=== PATIENT | female | born 1985 | race Caucasian/White ===

== ENCOUNTER → 2018-10-19 13:55 | Outpatient (CLI) | payer OTHER, SELFPAY ==
[2018-10-24 11:56] LABS: HPV Reflexed? NOT INDICATED
== END ==
PROVIDERS: Visit Provider Obstetrics & Gynecology
DX: Z12.4 Encounter for screening for malignant neoplasm of cervix (principal)
CPT/HCPCS: 88175; G0145

== ENCOUNTER → 2020-07-29 12:33 | Outpatient (CLI) | payer OTHER, SELFPAY ==
[2020-07-29 14:23] LABS: hCG Titer Quant., Serum 46800 mIU/mL (1-3)
== END ==
PROVIDERS: PCP Family Medicine; Referring Provider Obstetrics & Gynecology; Visit Provider Obstetrics & Gynecology
DX: O20.0 Threatened abortion (principal); Z3A.00 Weeks of gestation of pregnancy not specified
CPT/HCPCS: 36415; 84702; 86850; 86900; 86901

== ENCOUNTER → 2020-07-30 14:31 | Outpatient (CLI) | payer OTHER, SELFPAY ==
--- NOTE | 2020-07-30 14:33 | US_ITS ---
STUDY: FIRST TRIMESTER OBSTETRICAL ULTRASOUND REASON FOR EXAM: Female, 35 years old DATING/VIABILITY LMP: 06/16/2020. TECHNIQUE: Transvaginal TECHNICAL QUALITY: Adequate. PRIOR ULTRASOUND: None. FINDINGS: There is visualization of a single gestational sac in a normal intrauterine position. The mean sac diameter (MSD) measures 2.2 cm, indicating an estimated gestational age (EGA) of 7 weeks, 2 days. The gestational sac shape is within normal limits. There is a visualized yolk sac. The yolk sac measures 3.4 mm. The placenta is non-visualized. There is visualization of a live embryo. The crown-rump length (CRL) measures 5.3 mm, indicating an estimated gestational age (EGA) of 6 weeks, 3 days. There is demonstrated cardiac activity with a heart rate of 136 bpm. The estimated gestation age (EGA) by LMP is 6 weeks, 2 days. The estimated date of delivery (KAE) by LMP is 03/23/2021. The estimated gestation age (EGA) by US is 6 weeks, 6 days. The estimated date of delivery (KAE) by US is 03/19/2021. The uterus measures 8.7 cm x 5.8 cm x 4.4 cm. There is no demonstrated uterine fibroid. The cervix is closed. Multiple small nabothian cysts are seen. The right ovary measures 3.2 cm x 1.9 cm x 2.5 cm. There is no right ovarian cyst. There is no visualized right adnexal mass or complex lesion. The left ovary measures 2.8 cm x 2 cm x 1.8 cm. There is no left ovarian cyst. There is no visualized left adnexal mass or complex lesion. There is minimal fluid in the cul de sac. US/Init OB < 14Wks US IMPRESSION: Single live intrauterine gestation with a mean gestational age of 6 weeks and 6 days. Electronically Signed: Asher Kebede, at 15:34 EST , Service support ,
== END ==
PROVIDERS: PCP Family Medicine; Visit Provider Obstetrics & Gynecology
DX: O46.91 Antepartum hemorrhage, unspecified, first trimester (principal); Z3A.01 Less than 8 weeks gestation of pregnancy
CPT/HCPCS: 76801

== ENCOUNTER → 2020-08-26 10:06 | Outpatient (CLI) | payer OTHER, SELFPAY ==
[2020-08-26 09:26] VITALS: BMI 23.2
[2020-08-26 10:23] LABS: Absolute Lymphocyte Count 1.95 X10^3/uL (0.83-4.51); Absolute Neutrophil Count 5.8 X10^3/uL (2.0-7.7); Basophil# 0.03 X10^3/uL; Basophil% 0.4 % (0-1); Eosinophil# 0.06 X10^3/uL; Eosinophils% 0.7 % (0-5); Hematocrit 35.7 % (37-47); Hemoglobin 11.9 g/dL (12.0-15.0); Lymphocyte # 1.95 X10^3/ul (4.0); Mean Corp Hgb Conc 33.3 g/dL (32-36); Mean Corpuscular Hgb 30.7 pg (27.0-32.0); Mean Platelet Vol. 8.9 fl (6.2-12.0); Monocyte# 0.58 X10^3/uL; Monocyte% 6.8 % (0-10); NRBC Flagged by Analyzer 0 % (0-5); Neutrophil # 5.84 X10^3/uL (2.7-7.7); Neutrophil % 68.9 % (47-70); Platelet Count 269 K/mm3 (150-450); RBC Distribution Width CV 12.6 % (11.6-14.6); RBC Distribution Width SD 41.9 fl (35.1-43.9); Red Blood Count 3.88 M/mm3 (4.2-5.4); White Blood Count 8.5 K/mm3 (4.4-11.0)
[2020-08-26 17:04] LABS: Amphetamine Urine VISTA NEGATIVE (<1000 ng/mL); Barbiturate Urine VISTA NEGATIVE (< 200 ng/mL); Benzodiazepine Urine VISTA NEGATIVE (< 200 ng/mL); Cocaine Urine VISTA NEGATIVE (< 300 ng/mL); Ecstacy Urine VISTA NEGATIVE (< 500 ng/mL); Methadone Urine VISTA NEGATIVE (< 300 ng/mL); PCP Urine VISTA NEGATIVE (< 25 ng/mL); THC Urine VISTA NEGATIVE (< 50 ng/mL); Vista UDS pH Range 6
[2020-08-28 15:03] LABS: HIV - WCH Non-Reactive (Nonreactive); Hepatitis B Surface Antigen Non-Reactive (Nonreactive); Hepatitis C Antibody Non-Reactive (Nonreactive); Rubella IgG Reactive (Nonreactive)
[2020-08-29 03:03] LABS: Rapid Plasmin Reagin (RPR) NONREACTIVE (NONREACTIVE)
[2020-08-29 06:07] LABS: Chlamydia By Nucleic Acid AMP Negative (Negative)
[2020-08-29 13:45] LABS: HPV APTIMA, High Risk Negative (Negative)
[2020-08-29 13:48] LABS: Gonococcus By Nucleic Acid AMP Negative (Negative)
== END ==
PROVIDERS: PCP Family Medicine; Referring Provider Obstetrics & Gynecology; Visit Provider Obstetrics & Gynecology
DX: Z34.90 Encounter for supervision of normal pregnancy, unspecified, unspecified trimester (principal); Z12.4 Encounter for screening for malignant neoplasm of cervix; Z11.3 Encounter for screening for infections with a predominantly sexual mode of transmission
CPT/HCPCS: 36415; 80307; 85025; 86592; 86703; 86762; 86803; 86850; 86900; 86901; 87086; 87088; 87340; 87491; 87591; 87624; 88175; G0145

== ENCOUNTER → 2020-11-04 15:51 | Outpatient (CLI) | payer OTHER, SELFPAY ==
[2020-09-26 15:03] VITALS: BMI 23.6
[2020-10-25 15:19] VITALS: BMI 24.7
--- NOTE | 2020-11-04 15:53 | US_ITS ---
STUDY: SECOND AND THIRD TRIMESTER OBSTETRICAL ULTRASOUND REASON FOR EXAM: Female, 35 years old anatomy LMP: 06/16/2020. TECHNIQUE: Transabdominal and Transvaginal TECHNICAL QUALITY: Adequate. PRIOR ULTRASOUND: Comparison is made with prior study dated 07/30/2020. FINDINGS: There is a single intrauterine fetus. The fetus is in a variable presentation. There is demonstrated cardiac activity with a heart rate of 144 bpm. There is a normal amniotic fluid volume. The largest amniotic fluid pocket measures 6.01 cm. The amniotic fluid index (BHUPINDER) is within normal limits. The placenta is posterior in location and is not low lying. There are Grade 0 placental changes. The cervix measures 4.1 cm in length. Multiple small nabothian cysts are seen. The adnexal regions are not visualized. BIOMETRY: BPD: 4.7 cm: 20 weeks, 1 days HC: 17.57 cm: 20 weeks, 0 days AC: 15.69 cm: 20 weeks, 5 days FL: 3.1 cm: 19 weeks, 4 days CI: 76.3% FL/BPD: 65.9% FL/HC: FL/AC: 19.8% HC/AC: 1.1 age by current US: 20 weeks, 0 days. KAE by current US: 03/24/2021. Estimated weight: 346 grams, +/- 52 grams, 54 %. age by prior US: 20 weeks, 5 days. KAE by prior US: 03/19/2021. Age by LMP: 20 weeks, 1 days. KAE by LMP: 03/23/2021. ANATOMY: Gender: Female Cranium: Normal lateral ventricles. Normal choroid plexus. Normal cerebellum. Normal cisterna magna. Normal face, nose and lips. Chest: Normal 4-chamber heart. Abdomen/Pelvis: Normal diaphragm. Normal stomach. Normal abdominal wall. Normal cord insertion. Normal 3 vessel cord. Normal kidneys. Normal bladder. Spine: Normal cervical spine. Normal thoracic spine. Normal lumbar spine. Normal sacrum. Extremities: Normal bilateral upper extremities. Normal bilateral lower extremities. US/OB Anatomy Scan IMPRESSION: Single live intrauterine gestation with a mean gestational age of 20 weeks and 1 day. Electronically Signed: Asher Kebede MD at 8:40 EDT , Service support ,
== END ==
PROVIDERS: PCP Family Medicine; Referring Provider Obstetrics & Gynecology; Visit Provider Obstetrics & Gynecology
DX: Z34.00 Encounter for supervision of normal first pregnancy, unspecified trimester (principal)
CPT/HCPCS: 76805; 76817

== ENCOUNTER → 2021-01-02 14:16 | Outpatient (CLI) | payer OTHER, SELFPAY ==
[2020-12-19 15:36] VITALS: BMI 24.7
[2021-01-02 15:10] LABS: Basophil# 0.03 X10^3/uL; Basophil% 0.2 % (0-1); Eosinophil# 0.08 X10^3/uL; Eosinophils% 0.7 % (0-5); Hematocrit 32.5 % (37-47); Hemoglobin 10.7 g/dL (12.0-15.0); Lymphocyte % 17.9 % (19-41); Mean Corp Hgb Conc 32.9 g/dL (32-36); Mean Corpuscular Hgb 30.2 pg (27.0-32.0); Mean Corpuscular Volume 91.8 fL (81-99); Mean Platelet Vol. 9.1 fl (6.2-12.0); Monocyte# 0.91 X10^3/uL; Monocyte% 7.4 % (0-10); NRBC Flagged by Analyzer 0 % (0-5); Neutrophil # 8.98 X10^3/uL (2.7-7.7); Neutrophil % 73.1 % (47-70); Platelet Count 238 K/mm3 (150-450); RBC Distribution Width CV 12.4 % (11.6-14.6); RBC Distribution Width SD 41.6 fl (35.1-43.9); Red Blood Count 3.54 M/mm3 (4.2-5.4); White Blood Count 12.3 K/mm3 (4.4-11.0)
[2021-01-02 15:27] LABS: Glucose Challenge Gest 1H 50g 114 mg/dL (70-140)
== END ==
PROVIDERS: PCP Family Medicine; Referring Provider Obstetrics & Gynecology; Visit Provider Obstetrics & Gynecology
DX: Z34.02 Encounter for supervision of normal first pregnancy, second trimester (principal); Z13.1 Encounter for screening for diabetes mellitus
CPT/HCPCS: 36415; 82950; 85025

== ENCOUNTER → 2021-01-31 15:49 | Outpatient (CLI) | payer OTHER, SELFPAY ==
[2021-01-31 15:23] VITALS: BMI 27.4
[2021-01-31 17:08] LABS: Absolute Lymphocyte Count 2.68 X10^3/uL (0.83-4.51); Absolute Neutrophil Count 10.7 X10^3/uL (2.0-7.7); Basophil# 0.03 X10^3/uL; Basophil% 0.2 % (0-1); Eosinophil# 0.11 X10^3/uL; Eosinophils% 0.7 % (0-5); Hematocrit 35.4 % (37-47); Hemoglobin 11.5 g/dL (12.0-15.0); Lymphocyte # 2.68 X10^3/ul (0.83-4.51); Lymphocyte % 18.1 % (19-41); Mean Corp Hgb Conc 32.5 g/dL (32-36); Mean Corpuscular Hgb 30.6 pg (27.0-32.0); Mean Corpuscular Volume 94.1 fL (81-99); Mean Platelet Vol. 9.1 fl (6.2-12.0); Monocyte# 1.18 X10^3/uL; NRBC Flagged by Analyzer 0 % (0-5); Neutrophil # 10.71 X10^3/uL (2.7-7.7); Neutrophil % 72.2 % (47-70); Platelet Count 261 K/mm3 (150-450); RBC Distribution Width CV 13.2 % (11.6-14.6); RBC Distribution Width SD 45.8 fl (35.1-43.9); Red Blood Count 3.76 M/mm3 (4.2-5.4); White Blood Count 14.8 K/mm3 (4.4-11.0)
== END ==
PROVIDERS: PCP Family Medicine; Referring Provider Obstetrics & Gynecology; Visit Provider Obstetrics & Gynecology
DX: D50.9 Iron deficiency anemia, unspecified (principal)
CPT/HCPCS: 36415; 85025

== ENCOUNTER → 2021-02-14 | Outpatient (CLI) | payer OTHER, SELFPAY ==
[2021-02-14 15:24] VITALS: BMI 27.4
== END | disposition home or self-care (01) ==
LOC: LABSPEC 17:34
PROVIDERS: PCP Family Medicine; Visit Provider Obstetrics & Gynecology
DX: O12.10 Gestational proteinuria, unspecified trimester (principal); Z3A.00 Weeks of gestation of pregnancy not specified
CPT/HCPCS: 87086; 87088

== ENCOUNTER → 2021-02-28 | Outpatient (CLI) | payer OTHER, SELFPAY ==
[2021-02-28 15:16] VITALS: BMI 27.4
== END | disposition home or self-care (01) ==
LOC: LABSPEC 16:45
PROVIDERS: PCP Family Medicine; Visit Provider Obstetrics & Gynecology
DX: Z34.02 Encounter for supervision of normal first pregnancy, second trimester (principal)
CPT/HCPCS: 87081

== ENCOUNTER 2021-03-30 07:00 | Inpatient (IN) | payer OTHER, SELFPAY ==
[2021-03-30] VITALS (46 sets, daily range): BP systolic 82–131; BP diastolic 42–87; PULSE 70–247; TEMP 36.7–38.4; O2SAT 89–99; BMI 28.0
[2021-03-30 07:50] LABS: Absolute Lymphocyte Count 2.33 X10^3/uL (0.83-4.51); Absolute Neutrophil Count 6.9 X10^3/uL (2.0-7.7); Basophil# 0.03 X10^3/uL; Basophil% 0.3 % (0-1); Eosinophil# 0.12 X10^3/uL; Eosinophils% 1.2 % (0-5); Hematocrit 39.3 % (37-47); Hemoglobin 13.2 g/dL (12.0-15.0); Lymphocyte # 2.33 X10^3/ul (0.83-4.51); Lymphocyte % 22.7 % (19-41); Mean Corp Hgb Conc 33.6 g/dL (32-36); Mean Corpuscular Hgb 30.4 pg (27.0-32.0); Mean Corpuscular Volume 90.6 fL (81-99); Mean Platelet Vol. 9.3 fl (6.2-12.0); Monocyte# 0.81 X10^3/uL; Monocyte% 7.9 % (0-10); NRBC Flagged by Analyzer 0 % (0-5); Neutrophil # 6.89 X10^3/uL (2.7-7.7); Neutrophil % 67.2 % (47-70); Platelet Count 245 K/mm3 (150-450); RBC Distribution Width CV 13.5 % (11.6-14.6); RBC Distribution Width SD 45.2 fl (35.1-43.9); Red Blood Count 4.34 M/mm3 (4.2-5.4); White Blood Count 10.3 K/mm3 (4.4-11.0)
[2021-03-30] MEDS: Oxytocin 30 units/NS 500 ml 30 UNITS/500 ML IV.SOLN IV (08:01)
[2021-03-30] MEDS: Lactated Ringers 1,000 ML 50 ML IV (08:01)
--- NOTE | 2021-03-30 10:09 | HP.PCM.OB_ITS ---
HPI - General General Date of Admission: 03/30/21 HPI Narrative SREEDHAR DE LA CRUZ, is a 35 F at 41/0 who presents for induction of labor for late term Maternal Data Information KAE Calculator Estimated Delivery Date Method Current WG Current Estimate 03/23/21 LMP (Certain) 41w 0d Other Estimates 03/17/21 Ultrasound #1 41w 6d PFSH PFSH Medical History History of tetanus, diphtheria, and acellular pertussis booster vaccination ( Tdap) Proctitis Home Medications mesalamine 1,000 mg rectal suppository 1 g RC PRN PRN 08/01/20 [History Last Taken Unknown] multivitamin no.47-iron fum 27 mg-folate no.1 1 mg-dha 300 mg capsule 1 cap PO DAILY 08/01/20 [History Last Taken 03/30/21 06:00] ferrous sulfate [iron] 325 mg PO DAILY 03/30/21 [History Last Taken 03/29/21 20:00] Allergy/AdvReac Type Severity Reaction Status Date / Time amoxicillin [From Augmentin] AdvReac Intermediate Hives Verified 03/27/21 13:25 clavulanic acid AdvReac Intermediate Hives Verified 03/27/21 13:25 [From Augmentin] Family History Mother Lung cancer Father Prostate CA Grandfather Cancer Surgical History History of tonsillectomy Social History adopted: No household members: family housing: house current occupational status: employed current occupation: [employer] pets and animals: No Smoking Status: Never smoker second hand exposure: No alcohol intake: current alcohol intake frequency: holidays/special occasions only details: not while substance use type: does not use seatbelt use: always do you feel safe at home: Yes additional social history: - [place] Senior Benefits [employer] History 1 Elective abortions Hx Para 0 Spontaneous abortions Hx # Term Pregnancies Ectopic pregnancies Hx # Pregnancies Multiple births # of living children Visit Details Expected Delivery Route/Plan Labor Preferences- CB/BF classes: desires labor support person: [place] labor intervention preferences: [] pain management options preferred: epidural if needed cut cord/dad catch: cord : yes PP control planned: NFP discussed possible routes of delivery and associated risks: [] special requests: [] Plans covid status: dontrell flu vaccine: declines tdap vaccine: declines but considering rhogam: na LARC form signed: yes movement and labor precautions reviewed. Problem list reviewed and updated with the most current plan of care details and appropriate orders placed. Relevant counseling for the gestational age provided. Continue routine care and follow up unless otherwise noted in visit notes/problem list details OB Flowsheet Initial Weight: 144 lb Date -?-?-?-?-?-?-?-?-?-?-?-?- EGA Weight BP Urine Prot -?-?-?-?-?-?-?-?-?-?-?-?- Glucose FHR FuHt Pres Dilation -?-?-?-?-?-?-?-?-?-?-?-?- Effaced St Visit Note 08/26/20 -?-?-?-?-?-?-?-?-?-?-?-?- 10w 1d 144 lb (+0 oz) 110/72 -?-?-?-?-?-?-?-?-?-?-?-?- -?-?-?-?-?-?-?-?-?-?-?-?- SM- CRL cons wit h LMP 09/26/20 -?-?-?-?-?-?-?-?-?-?-?-?- 14w 4d 146 lb (+2 lb) 122/80 Negative -?-?-?-?-?-?-?-?-?-?-?-?- Negative 160 -?-?-?-?-?-?-?-?-?-?-?-?- SM- no vb crampi ng 10/25/20 -?-?-?-?-?-?-?-?-?-?-?-?- 18w 5d 153 lb 8 oz (+9 lb 8 oz) 102/68 Negative -?-?-?-?-?-?-?-?-?-?-?-?- Negative 165 -?-?-?-?-?-?-?-?-?-?-?-?- GP -no cramping or bleeding. Anatomy 11/04. 11/22/20 -?-?-?-?-?-?-?-?-?-?-?-?- 22w 5d 158 lb (+14 lb) 112/64 Negative -?-?-?-?-?-?-?-?-?-?-?-?- Negative 145 -?-?-?-?-?-?-?-?-?-?-?-?- GP - no ctx, LOF , VB, DFM. GCT next visit. GP - no ctx, LOF, VB, DFM. G CT next visit. Anatomy nl. 12/19/20 -?-?-?-?-?-?-?-?-?-?--?-?- 26w 4d 162 lb (+18 lb) Negative -?-?-?-?-?-?-?-?-?-?-?-?- Negative 145 26 -?-?-?-?-?-?-?-?-?-?-?-?- SM- no vb lof go od fm no regular ctx cbc gct next visit considering tdap. 01/02/21 -?-?-?-?-?-?-?-?-?-?-?-?- 28w 4d 167 lb 4 oz (+23 lb 4 oz) 118/60 Negative -?-?-?-?-?-?-?-?-?-?-?-?- Negative 138 28 -?-?-?-?-?-?-?-?-?-?-?-?- MH-No VB, LOF. G ood FM. 28 wk labs, larc, tdap. 01/17/21 -?-?-?-?-?-?-?-?-?-?-?-?- 30w 5d 170 lb 4 oz (+26 lb 4 oz) 130/80 Negative -?-?-?-?-?-?-?-?-?-?-?-?- Negative 145 30 -?-?-?-?-?-?-?--?-?-?-?-?- GP - no LOF, VB, DFM, ctx. [place] lump in R. breast - consistent with milk ducts on exam 01/31/21 -?-?-?-?-?-?-?-?-?-?-?-?- 32w 5d 170 lb (+26 lb) 100/70 Negative -?-?-?-?-?-?-?-?-?-?-?-?- Negative 140 33 -?-?-?-?-?-?-?-?-?-?-?-?- SM- no vb lof go od fm no regular ctx 02/14/21 -?-?-?-?-?-?-?-?-?-?-?-?- 34w 5d 173 lb (+29 lb) 108/74 3+ -?-?-?-?-?-?-?-?-?-?-?-?- Negative 130 35 -?-?-?--?-?-?-?-?-?-?-?-?- Sm- no vb lof go od fm no reuglar ctx 02/28/21 -?-?-?-?-?-?-?-?-?-?-?-?- 36w 5d 173 lb 6 oz (+29 lb 6 oz) 110/78 Negative -?-?-?-?-?-?-?-?-?-?-?-?- Negative 130 36 Cephalic 2 -?-?-?-?-?-?-?-?-?-?-?-?- 60 -3 GP - no LO F, VB, DFM, ctx. GBS today 03/07/21 -?-?-?-?-?-?-?-?-?-?-?-?- 37w 5d 176 lb (+32 lb) 112/82 Negative -?-?-?-?-?-?-?-?-?-?-?-?- Negative 130 38 Cephalic -?-?-?-?-?-?-?-?-?--?-?-?- GP - no LOF, VB, DFM, ctx. Denies complaints. 03/14/21 -?-?-?-?-?-?-?-?-?-?-?-?- 38w 5d 177 lb 4 oz (+33 lb 4 oz) 110/64 Negative -?-?-?-?-?-?-?-?-?-?-?-?- Negative 130 39 Cephalic 3 -?-?-?-?-?-?-?-?-?-?-?-?- SM- no vb lof go od fm no regular ctx 03/19/21 -?-?--?-?-?-?-?-?-?-?-?-?- 39w 3d 173 lb 4 oz (+29 lb 4 oz) 108/78 Negative -?-?-?-?-?-?-?-?-?-?-?-?- Negative 120 39 Cephalic 3 -?-?-?-?-?-?-?-?-?-?-?-?- 70 -2 GP - no LO F, VB, DFM, ctx. Had VEGA starting last night associated with nausea. BP nl. Symptoms consistent with tension VEGA. Reglan sent to pharmacy. 03/24/21 -?-?-?-?-?-?-?-?-?-?-?-?- 40w 1d 174 lb 6 oz (+30 lb 6 oz) 104/74 Negative -?-?-?-?-?-?-?-?-?-?-?-?- Negative 130 40 Cephalic 4 -?-?-?-?-?-?-?-?-?-?-?-?- 70 -2 GP - no LO F, VB, DFM, ctx. Discussed IOL. GP - no LOF, VB, DFM, ctx. D iscussed IOL. Undecided on timing. BHUPINDER 22 with DVP of 7.9 03/27/21 -?-?-?-?-?-?-?-?-?-?-?-?- 40w 4d 174 lb 6 oz (+30 lb 6 oz) 112/80 Negative -?-?-?-?-?-?-?-?-?-?-?-?- Negative 130 40 Cephalic 4 -?-?-?-?-?-?-?-?-?-?-?-?- 70 -2 GP - no LO F, VB, DFM, regular ctx. IOL scheduled for 41/0 03/30/21 -?-?-?-?-?-?-?-?-?-?-?-?- 41w 0d 174 lb (+30 lb) 104/72 104/72 117/72 110/72 116/73 -?-?-?-?-?-?-?-?-?-?-?-?- -?-?-?-?-?-?-?-?-?-?-?-?- NST FHR Rate Baby A Baseline: 130 Variability:: Moderate Accelerations:: 15 x 15 Decelerations:: None NST Reactive:: Yes FHR Category:: Category I Uterine Activity:: q3-5min ROS Eyes Eyes: Reports systems reviewed and no addt'l complaints, except as documented ENT HEENT: Reports systems reviewed and no addt'l complaints, except as documented Cardiovascular Cardiovascular: Reports systems reviewed and no addt'l complaints, except as documented Respiratory/Chest Respiratory/Chest: Reports systems reviewed and no addt'l complaints, except as documented Gastrointestinal Gastrointestinal: Reports systems reviewed and no addt'l complaints, except as documented Genitourinary Genitourinary: Reports systems reviewed and no addt'l complaints, except as documented Musculoskeletal Musculoskeletal: Reports systems reviewed and no addt'l complaints, except as documented Integumentary Integumentary: Reports systems reviewed and no addt'l complaints, except as documented Neurologic Neurologic: Reports systems reviewed and no addt'l complaints, except as documented Psychiatric Psychiatric: Reports systems reviewed and no addt'l complaints, except as documented Endocrine Endocrinology: Reports systems reviewed and no addt'l complaints, except as documented Hematologic/Lymphatic Hematologic/Lymphatic: Reports systems reviewed and no addt'l complaints, except as documented Allergic/Immunologic Allergic/Immunologic: Reports systems reviewed and no addt'l complaints, except as documented Vital Signs Vital Signs Vital Signs: 03/30/21 07:29 03/30/21 07:30 03/30/21 08:15 Temperature 99.0 F 99.0 F Temperature Source Temporal Pulse Rate 91 78 Blood Pressure 104/72 117/72 BP Systolic 104 117 BP Diastolic 72 72 Pulse Ox 97 03/30/21 09:16 03/30/21 10:07 Temperature 98.8 F Temperature Source Pulse Rate 76 75 Blood Pressure 110/72 116/73 BP Systolic 110 116 BP Diastolic 72 73 Pulse Ox 97 Weight Weight: 174 lb Body Mass Index (BMI) 28.0 Physical Exam Const alert, oriented x3, no apparent distress, average body habitus, healthy appearing and well nourished HEENT normocephalic and moist oral mucous membranes Head and Scalp: atraumatic Eyes PERRL and EOMs intact bilaterally Neck full ROM Resp normal respiratory effort, no retractions and no use of accessory muscles Cardio regular rate and regular rhythm GI soft to palpation, non-tender and non-distended Extremity normal to inspection and full ROM Skin no rashes or lesions noted Neuro no focal motor deficits and no sensory deficits noted Psych mental status grossly normal, affect normal, speech normal and activity/motor behavior normal Labs Labs Labs: Blood Type B POSITIVE Antibody Screen NEGATIVE Hct 39.3 % (37-47) Hgb 13.2 g/dL (12.0-15.0) Pap Smear Negative Obstetrics US Rubella IgG Antibody Reactive (Nonreactive) Hep Bs Antigen Non-Reactive (Nonreactive) Neisseria gonorrhoeae DNA (PHYLICIA) Negative (Negative) HIV 1&2 Antibody Non-Reactive (Nonreactive) Glucose 1 Hr 50 gm 114 mg/dL (70-140) Assessment & Plan (1) : QUALIFIERS: Weeks of gestation: 40 weeks Qualified Code(s): Z3A.40 - 40 weeks gestation of COMMENT: declined screening ntd, genetic, and carrier. NL anatomy; GBS NEG (2) Proctitis: COMMENT: Dx: 2013 (3) Supervision of normal first : QUALIFIERS: Trimester: second trimester Qualified Code(s): Z34.02 - Encounter for supervision of normal first , second trimester COMMENT: PRR KAE 03/23/21 girl Spouse: [place] (4) Anemia: QUALIFIERS: Anemia type: iron deficiency Iron deficiency anemia type: unspecified iron deficiency Qualified Code(s): D50.9 - Iron deficiency anemia, unspecified COMMENT: add Fe, repeat cbc january (5) Encounter for induction of labor: PLAN: Patient presents IOL, plan management for with pitocin/AROM. Pain management: desires natural labor. GBS negative. Management of any complications: none [facility] and made any clinically relevant updates.
[2021-03-30] MEDS: Lactated Ringers 500 ML 999 ML IV ×2 (14:32→15:30)
[2021-03-30] MEDS: Ondansetron 4 MG/2 ML Vial IV ×2 (14:32→21:54)
[2021-03-30] MEDS: fentaNYL-bupivacaine (epidural) 100 ML BAG EPIDURAL ×2 (15:20→19:31)
[2021-03-30] MEDS: Lactated Ringers 1,000 ML 200 ML IV (18:44)
[2021-03-30] MEDS: Mag Hydrox/Al Hydrox/Simeth 30 ML UDC PO (21:49)
[2021-03-30] MEDS: 0.9% Saline Lock 10 ML Syringe IV (21:54)
[2021-03-30] MEDS: Oxytocin 30 units/NS 500 ml 30 UNITS/500 ML IV.SOLN 999 UNITS IV (22:30)
[2021-03-30] MEDS: Methylergonovine 0.2 MG/ML Ampul IM (22:31)
--- NOTE | 2021-03-30 22:53 | OP.PCM_ITS ---
Assessment & Plan (1) Spontaneous vaginal delivery: (2) Encounter for induction of labor: (3) Anemia: QUALIFIERS: Anemia type: iron deficiency Iron deficiency anemia type: unspecified iron deficiency Qualified Code(s): D50.9 - Iron deficiency anemia, unspecified COMMENT: add Fe, repeat cbc january (4) Supervision of normal first : QUALIFIERS: Trimester: second trimester Qualified Code(s): Z34.02 - Encounter for supervision of normal first , second trimester COMMENT: PRR KAE 03/23/21 girl Spouse: [place] (5) Proctitis: COMMENT: Dx: 2013 (6) : QUALIFIERS: Weeks of gestation: 40 weeks Qualified Code(s): Z3A.40 - 40 weeks gestation of COMMENT: declined screening ntd, genetic, and carrier. NL anatomy; GBS NEG Maternal Data Information KAE Calculator Estimated Delivery Date Method Current WG Current Estimate 03/23/21 LMP (Certain) 41w 0d Other Estimates 03/17/21 Ultrasound #1 41w 6d Vaginal Delivery Maternal Presentation Maternal Presentation: Medically Indicated Induction Maternal Presentation: 35-year-old G1, P0 at 41 weeks admitted for induction of labor for late term. Patient was induced with Pitocin. Type of Induction: Pitocin and Amniotomy Medical Reason for Induction: Post term Operative Information Date of Procedure: 03/30/21 Pre-Operative Diagnosis: Term , induction for late term Post-Operative Diagnosis: Same Surgery / Procedure Performed: Spontaneous Vaginal Delivery Type of Anesthesia: Epidural Drain: Romero to straight drain Estimated Blood Loss: 300 Findings Description of Procedure: Patient began pushing and delivered the head in the LEOONRA presentation. The head was delivered atraumatically and no nuchal cord was noted. The anterior and posterior shoulders delivered without complication followed by the rest of the and the infant was placed on the maternal abdomen. Delayed cord clamping was employed for approximately 60 seconds. Cord was clamped and cut and gentle traction was applied to the cord and the placenta delivered spontaneously immediately following it was noted to be intact with three-vessel cord. The perineum and vagina were inspected and a midline third- degree perineal laceration was noted and repaired in the standard fashion using 2-0 Vicryl and 3-0 Vicryl Rapide suture. EBL was 300 cc. Patient and infant tolerated delivery well. Presentation: Vertex and LEONORA Amniotic Membrane Rupture Type: Artificial Amniotic Fluid Description: Clear Placental Delivery Description: Spontaneous Placenta Disposition: [facility] Cord Vessel Description: 3 Vessels Cord Entanglement: None Infant A Gender: Female Delayed Cord Clamping: Yes Post Vaginal Delivery Medications Given After Delivery: IV Pitocin and IM Methergin Episiotomy Description: None Laceration: Midline, Perineal Extension/lac and 3rd degree Complication Complications: None Procedures Urinary/Genital [id number]: [id number] [facility]aginal [facility]
[2021-03-30] MEDS: Ibuprofen 600 MG Tablet PO (23:36)
[2021-03-31] VITALS (15 sets, daily range): BP systolic 91–112; BP diastolic 60–72; PULSE 70–110; RESP 16–18; TEMP 36.4–38.7; O2SAT 93–97
--- NOTE | 2021-03-31 00:09 | NURSING ---
report given to lwaters RN. that rn to assume care of pt recovery at this time.
[2021-03-31] MEDS: 0.9% Saline Lock 10 ML Syringe IV ×4 (00:29→09:21)
[2021-03-31] MEDS: Ibuprofen 600 MG Tablet PO ×2 (08:11→21:28)
--- NOTE | 2021-03-31 10:37 | PCM.PN.OB ---
Subjective Subjective Patient doing well without complaints. Tolerating PO. Ambulating and voiding without difficulty. Breast feeding well. Denies chest pain, shortness of breath, calf pain/swelling, fevers, chills, lightheadedness. Objective Data Objective Data Vital Signs: Vital Signs Temp Pulse Resp BP Pulse Ox 97.5 F L 74 16 109/70 96 03/31/21 07:40 03/31/21 07:40 03/31/21 07:40 03/31/21 07:40 03/31/21 07:40 Oxygen Delivery Method Room Air Weight: 174 lb Body Mass Index (BMI) 28.0 Intake & Output: Intake and Output for Last 24 Hours 03/29/21 03/30/21 03/31/21 23:59 23:59 23:59 Intake Total 3609.74 / 3609.74 269.5 / 269.5 Output Total 500 / 500 550 / 550 Balance 3109.74 / 3109.74 -280.5 / -280.5 Lab / Micro Data Result Diagrams: 03/30/21 07:25 Micro: Microbiology 03/30/21 07:40 Nasal Secretion SARS-CoV-2 Antigen (Rapid) - Final ROS Constitutional Constitutional: Denies fever(s) Cardiovascular Cardiovascular: Denies chest pain, dyspnea or lightheadedness Gastrointestinal Gastrointestinal: Reports abdominal pain; Denies constipation or diarrhea Neurologic Neurologic: Denies dizziness or headache(s) Physical Exam Const alert, oriented x3, no apparent distress, average body habitus, healthy appearing and well nourished HEENT normocephalic Head and Scalp: atraumatic Eyes PERRL and EOMs intact bilaterally Neck full ROM Lymph Lymphatic: no lymphadenopathy noted Resp normal respiratory effort, no retractions and no use of accessory muscles Cardio regular rate GI soft to palpation, non-tender and non-distended Palpation: other Other Details: fundus firm Extremity normal to inspection and no clubbing, cyanosis or edema Skin no rashes or lesions noted Neuro no focal motor deficits and no sensory deficits noted Psych mental status grossly normal, affect normal and speech normal Assessment & Plan (1) Spontaneous vaginal delivery: COMMENT: GP IOL-LT Girl-Naomi PLAN: s/p PPD # 1 1. routine post delivery care 2. breast feeding- support given 3. rh positive 4. rubella immune
--- NOTE | 2021-03-31 10:38 | PCM.DC ---
Discharge Instructions Diet Discharge Diet: No restrictions Activity Discharge Activity: Return to Normal Activity, May Not Drive (while taking narcotic pain medications.) and May Shower May resume sexual activity in: 4-6 weeks Dressing / Incision Call your doctor if your incision/area has: Continuous Slow Oozing, Sudden Increased Bleeding, Increased Pain/ Swelling, Increased Redness and Foul Smelling Discharge Follow Up Care When: Call to make an appointment with your doctor in 6 weeks. If you had elevated Blood Pressure or 4th degree laceration you will need to be seen in 2 weeks. Test Results: Test results from this visit will be discussed in further detail at your follow-up appointment, if applicable. Discharge Plan Admission Admit Date/Time: 03/30/21 07:00 Attending Provider: Karen Manzano Primary Care Provider: Dominick Ogden Instructions Patient Instructions: After a Vaginal Discharge Orders/Prescriptions Prescriptions: New ibuprofen 800 mg tablet 800 mg PO Q8H PRN (Reason: pain) Qty: 30 RF: 1 Continued mesalamine 1,000 mg suppository 1 g RC PRN PRN (Reason: colitis) RF: 0 PNV-DHA 27 mg iron-1 mg -300 mg capsule 1 cap PO DAILY RF: 0 ferrous sulfate [iron] 325 mg (65 mg iron) Tablet 325 mg PO DAILY RF: 0 Referrals / Follow Up: Dominick Ogden MD [Primary Care Provider] -
[2021-03-31] MEDS: Senna/Docusate Sodium 1 Tablet PO (18:24)
[2021-04-01 03:47] VITALS: BP 99/68; PULSE 67; RESP 16; TEMP 36.6
--- NOTE | 2021-04-01 07:48 | PCM.PN.OB ---
Subjective Subjective Patient doing well except discomfort from 3degree lac. Pain improved with ice and motrin. Tolerating PO. Ambulating and voiding without difficulty. Feeding well. Denies chest pain, shortness of breath, calf pain/swelling, fevers, chills, lightheadedness. Objective Data Objective Data Vital Signs: Vital Signs Temp Pulse Resp BP Pulse Ox 97.8 F 67 16 99/68 97 04/01/21 03:47 04/01/21 03:47 04/01/21 03:47 04/01/21 03:47 03/31/21 18:15 Oxygen Delivery Method Room Air Weight: 174 lb Body Mass Index (BMI) 28.0 Intake & Output: Intake and Output for Last 24 Hours 03/30/21 03/31/21 04/01/21 23:59 23:59 23:59 Intake Total 3609.74 / 3609.74 375.5 / 375.5 Output Total 500 / 500 550 / 550 Balance 3109.74 / 3109.74 -174.5 / -174.5 Lab / Micro Data Result Diagrams: 03/30/21 07:25 Micro: Microbiology 03/30/21 07:40 Nasal Secretion SARS-CoV-2 Antigen (Rapid) - Final Physical Exam Const alert and oriented x3 HEENT normocephalic Eyes PERRL Neck full ROM Resp normal respiratory effort GI soft to palpation GI Narrative: FF below U Assessment & Plan (1) Spontaneous vaginal delivery: COMMENT: GP IOL-LT Girl-Naomi PLAN: s/p PPD # 2 1. routine post delivery care 2. breast feeding- support given 3. rh positive 4. rubella immune 5. Patient hopeful to stay another day-nurse notified
[2021-04-01 08:43] VITALS: BP 94/64; PULSE 83; RESP 16; TEMP 36.7
[2021-04-01] MEDS: Ibuprofen 600 MG Tablet PO (10:27)
--- NOTE | 2021-04-01 11:30 | CASEMGMT ---
Social Work Assessment Labor and Delivery Unit Date of Referral: 03/31/21 Time of Referral: 16:24 Referred By: Dr. Manzano Date of Intervention: 04/01/21 Time of Intervention: 11:30a Reason for Referral: 1st baby, Resources History obtained from: Medical chart and mother of baby (MOB) Household composition: MOB reports she and FOB/, [place] are currently living with her father, Satya Mullen. Patient's parent/guardian status: MOB and FOB have been together for 6 years. for 1. Baby girlNaomi is their first child. Educational Status: College. No issues with reading or comprehending. Financial Status: Both MOB and FOB are employed. MOB with [employer] and FOB with [employer]. Supplies: MOB reports to have all needs met for baby including; car seat, crib, diapers, wipes, clothes, toys, etc. MOB reports nursing is working on getting breast pump. Childcare/Caregiver(s): MOB and FOB report will be main caregivers. MOB states her father is also in the house to assist. Transportation: No needs. Programs/Agencies Involved: MOB and FOB open to referral to [facility] Children Services/Legal Issues: No issues. Behavioral Health Issues: Mental Health History: MOB reports history of anxiety and depression while in high school and college. MOB states at that time was prescribed medication and was in counseling. MOB reports some anxiety with new baby. Reviewed signs/symptoms of post- depression and provided resources. MOB denies any concerns for mental health. Substance Use History: MOB and FOB deny any history of substance use. Family/Social Stressors: 1st time parents. Support Systems: MOB and FOB report good support from family who all reside locally. MOB states they are currently living with her father and he is a good support. Depression and Anxiety/Shaken Baby/Safe Sleeping: Reviewed and resources provided. ASSESSMENT: Met with MOB and FOB in room. MOB nursing baby girlNaomi. MOB gave permission for this worker to complete assessment at this time. Introduced role and reason for referral. MOB and FOB report this is their first child. MOB reports some ?first baby anxiety.? MOB states teaching was very good and helpful this morning. MOB reports to have good support from FOB and family and denies any concerns with home going. MOB states has all needs met for baby. Education provided on [facility]. MOB and FOB report would like referral. MOB states will have support from her father as they reside with her father at this time. Education provided on Post- Depression as MOB has history of anxiety and depression. Signs and symptoms reviewed and provided with handouts. MOB hopeful for discharge today/tomorrow. Nursing updated on this worker?s assessment. Nursing reports will continue teaching throughout the day. Informed referral being made to [facility]. PLAN: Home with resources provided. Referral to [facility] via online referral form. No other services requested or indicated. Amy Avalos, ROLLER STAINER, CHIEF STATION ENGINEER
[2021-04-01 14:20] VITALS: BP 103/66; PULSE 67; RESP 16; TEMP 36.8
== END 2021-04-01 18:15 | disposition home or self-care (01) | DRG 768 ==
PROVIDERS: Admitting Provider Obstetrics & Gynecology; PCP Family Medicine; Visit Provider Obstetrics & Gynecology
DX: O48.0 Post-term pregnancy (principal); Z37.0 Single live birth; O70.20 Third degree perineal laceration during delivery, unspecified; O99.02 Anemia complicating childbirth; D50.9 Iron deficiency anemia, unspecified; Z3A.41 41 weeks gestation of pregnancy
CPT/HCPCS: 59025; 59050; 85025; 86850; 86900; 86901; 87426; 99218; J7120; A4216; G0378; J2405

== ENCOUNTER → 2021-04-02 13:00 | Outpatient (CLI) | payer OTHER, SELFPAY ==
--- NOTE | 2021-04-02 13:04 | VDLE_ITS ---
Reason For Study: Swelling RIGHT GSV is normal. CFV is compressible, spontaneous, phasic, competent and demonstrates normal augmentation. FV is compressible, spontaneous, phasic, competent and demonstrates normal augmentation. POP V is compressible, spontaneous, phasic, competent and demonstrates normal augmentation. T/P Trunk is compressible. PTV is compressible. RT PerV is compressible. Procedure This is a venous duplex using B-mode, color flow and spectral Doppler. Exam performed in department. A preliminary report was called and/or faxed to Deborah. VL/Venous Duplex US, Unilateral Interpretation Summary There is no evidence of right lower extremity deep vein thrombosis. Right great saphenous vein appears patent and compressible segmentally. Ordering Physician: Kimberlee Cabrera Referring Physician: Dominick Ogden Performed By: Pam De La Torre RVT
== END ==
PROVIDERS: PCP Family Medicine; Referring Provider Nurse Practitioner Women's Health; Visit Provider Nurse Practitioner Women's Health
DX: M79.89 Other specified soft tissue disorders (principal)
CPT/HCPCS: 93971

== ENCOUNTER → 2022-03-10 | Outpatient (CLI) | payer OTHER, SELFPAY | END | disposition home or self-care (01) | LOC: LABSPEC 12:27 | PROVIDERS: PCP Family Medicine; Referring Provider Nurse Practitioner Women's Health; Visit Provider Nurse Practitioner Women's Health | DX: N76.0 Acute vaginitis (principal) | CPT/HCPCS: 87070; 87077; 87205 ==

== ENCOUNTER → 2022-05-21 | Outpatient (CLI) | payer OTHER, SELFPAY | END | disposition home or self-care (01) | LOC: LABSPEC 14:25 | PROVIDERS: PCP Family Medicine; Visit Provider Obstetrics & Gynecology | DX: N76.0 Acute vaginitis (principal) | CPT/HCPCS: 87070; 87205 ==

== ENCOUNTER → 2022-09-23 | Outpatient (CLI) | payer OTHER, SELFPAY | END | disposition home or self-care (01) | LOC: LABSPEC 13:39 | PROVIDERS: PCP Family Medicine; Referring Provider Nurse Practitioner Women's Health; Visit Provider Nurse Practitioner Women's Health | DX: N89.8 Other specified noninflammatory disorders of vagina (principal) | CPT/HCPCS: 87070; 87077; 87205 ==

== ENCOUNTER → 2022-10-19 | Outpatient (CLI) | payer OTHER, SELFPAY ==
[2022-10-19 12:56] LABS: hCG Titer Quant., Serum 822 mIU/mL (1-3)
== END | disposition home or self-care (01) ==
LOC: PAVLAB 11:46
PROVIDERS: PCP Family Medicine; Referring Provider Obstetrics & Gynecology; Visit Provider Obstetrics & Gynecology
DX: N91.2 Amenorrhea, unspecified (principal)
CPT/HCPCS: 36415; 84702

== ENCOUNTER → 2022-10-21 | Outpatient (CLI) | payer OTHER, SELFPAY ==
[2022-10-21 13:43] LABS: hCG Titer Quant., Serum 1962 mIU/mL (1-3)
== END | disposition home or self-care (01) ==
LOC: LAB 12:19
PROVIDERS: PCP Family Medicine; Referring Provider Obstetrics & Gynecology; Visit Provider Obstetrics & Gynecology
DX: N91.2 Amenorrhea, unspecified (principal)
CPT/HCPCS: 36415; 84702

== ENCOUNTER → 2022-11-05 | Outpatient (CLI) | payer OTHER, SELFPAY | END | disposition home or self-care (01) | LOC: PAVLAB 08:56 | PROVIDERS: PCP Family Medicine; Referring Provider Obstetrics & Gynecology; Visit Provider Obstetrics & Gynecology | DX: N92.0 Excessive and frequent menstruation with regular cycle (principal) | CPT/HCPCS: 36415; 84702 ==

== ENCOUNTER → 2022-11-16 | Outpatient (CLI) | payer OTHER, SELFPAY ==
[2022-11-18 06:08] LABS: Chlamydia By Nucleic Acid AMP Negative (Negative); Gonococcus By Nucleic Acid AMP Negative (Negative)
== END | disposition home or self-care (01) ==
LOC: LABSPEC 12:44
PROVIDERS: PCP Family Medicine; Referring Provider Obstetrics & Gynecology; Visit Provider Obstetrics & Gynecology
DX: O09.90 Supervision of high risk pregnancy, unspecified, unspecified trimester (principal); Z3A.00 Weeks of gestation of pregnancy not specified
CPT/HCPCS: 87086; 87491; 87591

== ENCOUNTER → 2022-11-30 | Outpatient (CLI) | payer OTHER, SELFPAY ==
[2022-11-30 10:57] LABS: Absolute Lymphocyte Count 2.23 X10^3/uL (0.83-4.51); Absolute Neutrophil Count 4.3 X10^3/uL (2.0-7.7); Basophil# 0.03 X10^3/uL; Basophil% 0.4 % (0-1); Eosinophil# 0.07 X10^3/uL; Hemoglobin 11.6 g/dL (12.0-15.0); Lymphocyte # 2.23 X10^3/ul (0.83-4.51); Lymphocyte % 31.4 % (19-41); Mean Corp Hgb Conc 32.2 g/dL (32-36); Mean Platelet Vol. 9.4 fl (6.2-12.0); Monocyte# 0.42 X10^3/uL; Monocyte% 5.9 % (0-10); NRBC Flagged by Analyzer 0 % (0-5); Neutrophil # 4.33 X10^3/uL (2.7-7.7); Platelet Count 273 K/mm3 (150-450); RBC Distribution Width CV 13.4 % (11.6-14.6); RBC Distribution Width SD 45.8 fl (35.1-43.9); Red Blood Count 3.87 M/mm3 (4.2-5.4); White Blood Count 7.1 K/mm3 (4.4-11.0)
[2022-11-30 11:36] LABS: Ferritin 12 ng/mL (8-252); Iron Binding Capacity,Total 325 ug/dL (250-450)
[2022-11-30 12:06] LABS: HIV - WCH Non-Reactive (Nonreactive); Hepatitis B Surface Antigen Non-Reactive (Nonreactive); Hepatitis C Antibody Non-Reactive (Nonreactive); Rubella IgG Equiv (Nonreactive); Syphilis Antibodies Non-reactive; Vitamin B12 466 pg/mL (211-911)
== END | disposition home or self-care (01) ==
LOC: LAB 10:11
PROVIDERS: PCP Family Medicine; Referring Provider Obstetrics & Gynecology; Visit Provider Obstetrics & Gynecology
DX: O09.90 Supervision of high risk pregnancy, unspecified, unspecified trimester (principal); K51.911 Ulcerative colitis, unspecified with rectal bleeding; O99.619 Diseases of the digestive system complicating pregnancy, unspecified trimester; Z3A.00 Weeks of gestation of pregnancy not specified
CPT/HCPCS: 36415; 82607; 82728; 83550; 85025; 86703; 86762; 86780; 86803; 86850; 86900; 86901; 87340

== ENCOUNTER → 2022-12-14 | Outpatient (CLI) | payer OTHER, SELFPAY ==
[2022-12-14 11:40] LABS: NATERA MAILED SPECIMEN
== END | disposition home or self-care (01) ==
LOC: PAVLAB 10:15
PROVIDERS: PCP Family Medicine; Referring Provider Registered Nurse; Visit Provider Registered Nurse
DX: Z34.81 Encounter for supervision of other normal pregnancy, first trimester (principal)

== ENCOUNTER → 2023-03-12 | Outpatient (CLI) | payer OTHER, SELFPAY ==
[2023-03-12 09:45] LABS: Absolute Lymphocyte Count 2.06 X10^3/uL (0.83-4.51); Absolute Neutrophil Count 7.2 X10^3/uL (2.0-7.7); Basophil# 0.03 X10^3/uL; Basophil% 0.3 % (0-1); Eosinophil# 0.06 X10^3/uL; Eosinophils% 0.6 % (0-5); Hematocrit 35.4 % (37-47); Hemoglobin 11.1 g/dL (12.0-15.0); Lymphocyte # 2.06 X10^3/ul (0.83-4.51); Lymphocyte % 20.7 % (19-41); Mean Corp Hgb Conc 31.4 g/dL (32-36); Mean Corpuscular Hgb 30.2 pg (27.0-32.0); Mean Corpuscular Volume 96.2 fL (81-99); Mean Platelet Vol. 9.1 fl (6.2-12.0); Monocyte# 0.56 X10^3/uL; Monocyte% 5.6 % (0-10); NRBC Flagged by Analyzer 0 % (0-5); Neutrophil # 7.16 X10^3/uL (2.7-7.7); Neutrophil % 72.2 % (47-70); Platelet Count 232 K/mm3 (150-450); RBC Distribution Width CV 12.4 % (11.6-14.6); RBC Distribution Width SD 43.4 fl (35.1-43.9); Red Blood Count 3.68 M/mm3 (4.2-5.4); White Blood Count 9.9 K/mm3 (4.4-11.0)
[2023-03-12 10:10] LABS: Glucose Challenge Gest 1H 50g 117 mg/dL (70-140)
[2023-03-12 10:44] LABS: HIV - WCH Non-Reactive (Nonreactive); Syphilis Antibodies Non-reactive
== END | disposition home or self-care (01) ==
LOC: PAVLAB 08:55
PROVIDERS: PCP Family Medicine; Referring Provider Advanced Practice Midwife; Visit Provider Advanced Practice Midwife
DX: O09.90 Supervision of high risk pregnancy, unspecified, unspecified trimester (principal); Z3A.00 Weeks of gestation of pregnancy not specified; Z13.1 Encounter for screening for diabetes mellitus
CPT/HCPCS: 36415; 82950; 85025; 86703; 86780

== ENCOUNTER → 2023-06-02 | Outpatient (CLI) | payer OTHER, SELFPAY | END | disposition home or self-care (01) | LOC: LABSPEC 11:17 | PROVIDERS: PCP Family Medicine; Referring Provider Obstetrics & Gynecology; Visit Provider Obstetrics & Gynecology | DX: O09.90 Supervision of high risk pregnancy, unspecified, unspecified trimester (principal); Z3A.00 Weeks of gestation of pregnancy not specified | CPT/HCPCS: 87077; 87081 ==

== ENCOUNTER 2023-06-15 11:05 | Outpatient (CLI) | payer OTHER, SELFPAY ==
--- NOTE | 2023-06-15 11:27 | US_ITS ---
EXAM: US BIOPHYSICAL PROFILE WITHOUT NON-STRESS TESTING CLINICAL INDICATION: NON REASSURING NST TECHNIQUE: Real-time ultrasound of the maternal pelvis for biophysical profile evaluation with image documentation. COMPARISON: No relevant prior studies available. FINDINGS: BREATHING MOVEMENTS: Present. Score 2/2. GROSS BODY MOVEMENTS: Present. Score 2/2. TONE: Present. Score 2/2. QUALITATIVE AMNIOTIC FLUID VOLUME: Amniotic fluid index is 12.9 cm. FETUS: Single intrauterine gestation. HEART RATE: heart rate is 137 bpm. PRESENTATION: Cephalic presentation. PLACENTA: Placenta is posterior without placenta previa. US/Biophysical Prof W/O Non Stres IMPRESSION: No acute findings. Normal biophysical profile with score of 8/8. Electronically Signed: Timothy Blanco MD at 13:55 EST ,
[2023-06-15 11:28] VITALS: BMI 26.1
[2023-06-15 11:35] VITALS: BP 105/65; PULSE 87
--- NOTE | 2023-06-15 17:07 | OB.TRI.PN_ITS ---
Progress Notes Date of Service: 06/15/23 Progress Note: Patient presents for triage evaluation secondary to nonreassuring NST in office. FHT: 125 Moderate variability reactive no decelerations category I tracing University: occasional contractions Assessment and plan: Reactive NST, 03/02 BPP, reassuring maternal and status patient discharged to home to follow-up, IOL scheduled for 06/22 at 7am. See problem list details for additional plan information. Charges/Coding Multi Select Codes Urinary/Genital Urinary/Genital CPT Codes: 81329-37 non-stress test Interp Assessment & Plan (1) Rubella non-immune status, antepartum: COMMENT: equivocal. MMR PP (2) AMA (advanced maternal age) multigravida 35+: COMMENT: genetic counseling provided. growth us at 36 weeks, deliver by 40. IOL 06/22 7am (3) Supervision of high risk , antepartum: COMMENT: [id number] KAE 06/22/23, girl, PC Naomi [place] (4) : QUALIFIERS: Weeks of gestation: 39 weeks Qualified Code(s): Z3A.39 - 39 weeks gestation of COMMENT: NIPT low risk, declined ntd screen and carrier. nl anatomy (5) Ulcerative colitis with rectal bleeding: COMMENT: stable no meds. iron and b12 levels drawn nst weekly per [facility]
== END 2023-06-15 14:35 | disposition home or self-care (01) ==
LOC: WPOUT 11:10 → WP 11:21
PROVIDERS: PCP Family Medicine; Referring Provider Advanced Practice Midwife; Visit Provider Advanced Practice Midwife
DX: K51.911 Ulcerative colitis, unspecified with rectal bleeding (principal); Z86.16 Personal history of COVID-19; O99.613 Diseases of the digestive system complicating pregnancy, third trimester; O09.523 Supervision of elderly multigravida, third trimester; Z3A.39 39 weeks gestation of pregnancy
CPT/HCPCS: 59025; 59050; 76819; 99221; G0378

== ENCOUNTER 2023-06-22 06:59 | Inpatient (IN) | payer OTHER, SELFPAY ==
[2023-06-22] VITALS (76 sets, daily range): BP systolic 78–156; BP diastolic 49–76; PULSE 64–176; RESP 16; TEMP 36.6–37.3; O2SAT 86–100; BMI 25.9
--- NOTE | 2023-06-22 07:59 | PN_ITS ---
Progress Note [Coping well with contractions] [comfortable with epidural] current tracing: FHT: [] Moderate variability reactive no decelerations category I tracing [place]: [] Contractions Membranes: SVE: reviewed tracing abnormalities since last note: [ ] A/P: Continue with position changes Titrate pitocin per protocol Epidural per anesthesia [PCN] for GBS prophylaxis Anticipate [Arianna] [Shefali] aware of plan and agrees with plan of care
--- NOTE | 2023-06-22 08:18 | HP.PCM.OB_ITS ---
HPI - General General Date of Admission: 06/22/23 Date of Service: 06/22/23 HPI Narrative SREEDHAR DE LA CRUZ, is a 37 F who presents at 40.0 weeks for Induction of labor for advanced maternal age. Maternal Data Information KAE Calculator Estimated Delivery Date Method Current WG Current Estimate 06/22/23 LMP (Certain) 40w 0d Final KAE: 06/22/23 Final KAE Source: US >20 weeks Gestational age: 40.0 weeks PFSH PFSH Medical History COVID-19 History of tetanus, diphtheria, and acellular pertussis booster vaccination (Tdap) Spontaneous vaginal delivery Spotting Home Medications lactobacillus combination no.9 4 billion cell capsule (Adult 50 Plus Probiotic) 4,000 mmu cells PO DAILY 05/21/22 [History Last Taken 06/22/23 06:00] multivitamin with iron 1 tab PO DAILY 05/21/22 [History Last Taken 06/21/23 07:00] aspirin 81 mg chewable tablet (Aspirin Childrens) 81 mg PO DAILY Covid previ ously in pregancy 06/22/23 [History Last Taken 06/21/23 19:00] Allergy/AdvReac Type Severity Reaction Status Date / Time amoxicillin [From Augmentin] AdvReac Intermediate Hives Verified 06/22/23 07:16 clavulanic acid AdvReac Intermediate Hives Verified 06/22/23 07:16 [From Augmentin] Family History Mother Lung cancer Father Prostate CA Grandfather Colon cancer Other Cancer Surgical History History of tonsillectomy Social History adopted: No household members: family and other details: her father housing: house number of children: 1 current occupational status: unemployed current occupation: [employer] pets and animals: No history of recent travel: No sexually active: Yes Smoking Status: Never smoker second hand exposure: No alcohol intake: current alcohol intake frequency: holidays/special occasions only details: not while substance use type: does not use caffeine: Yes Type: coffee Number of servings: 1 seatbelt use: always do you feel safe at home: Yes additional social history: - [employer] History 2 Elective abortions Hx Para 1 Spontaneous abortions Hx # Term Pregnancies Ectopic pregnancies Hx # Pregnancies Multiple births # of living children 1 Past Pregnancies Del. Date Name GA/Weeks Outcome Route Bth Weight Gen Labor Lgth Anesthesia Del Locatn Provider FOB 03/30/21 Naomi 41 live - full term 8lbs 8oz Female epidural [facility] Jose Juan Delivery Date: 03/30/21 Last Updated by: Bhavani Green 3rd degree laceration; IV pitocin and methergin given Visit Details Expected Delivery Route/Plan Labor Preferences- CB/BF classes: no labor support person: farnaz labor intervention preferences: none pain management options preferred: epidural cut cord/dad catch: [] : [] PP control planned: [] discussed possible routes of delivery and associated risks: [] special requests: [] Plans Covid status: discussed Flu vaccine:discussed Tdap vaccine: given Rhogam: na LARC form signed: done movement and labor precautions reviewed. Problem list reviewed and updated with the most current plan of care details and appropriate orders placed. Relevant counseling for the gestational age provided. Continue routine care and follow up unless otherwise noted in visit notes/problem list details OB Flowsheet Initial Weight: Not Recorded Date -?-?-?-?-?-?-?-?-?-?-?-?- EGA Weight BP Urine Prot -?-?-?-?-?-?-?-?-?-?-?-?- Glucose FHR FuHt Pres Dilation -?-?-?-?-?-?-?-?-?-?-?-?- Effaced St Visit Note 11/16/22 -?-?-?--?-?-?-?-?-?-?-?-?- 8w 6d 133 lb 2 oz 106/69 -?-?-?-?-?-?-?-?-?-?-?-?- 160 -?-?-?-?-?-?-?-?-?-?-?-?- SM- CRL 1.8cm co ns with LMP 12/14/22 -?-?-?-?-?-?-?-?-?-?-?-?- 12w 6d 136 lb 2 oz 97/69 Nega tive -?-?-?-?-?-?-?-?-?-?-?-?- Negative 150 -?-?-?-?-?-?-?-?-?-?-?-?- LC- doing well. discussed and declines afp. desires nipt and order sent. no vb/cramping. NOB labs reviewed. 01/13/23 -?-?-?-?-?-?-?-?-?-?-?-?- 17w 1d 137 lb 8 oz 96/67 Nega tive -?-?-?-?-?-?-?-?-?-?-?-?- Negative 147 -?-?-?-?-?-?-?-?-?-?-?-?- MH-No Vb, or furniture crater mping. Denies concerns 02/10/23 -?-?-?-?-?-?-?-?-?-?-?-?- 21w 1d 142 lb 8 oz 103/68 Nega tive -?-?-?-?-?-?-?-?-?-?-?-?- Negative 150 21 -?-?-?-?-?-?-?-?-?-?-?-?- KW-+fm, no lof/v b/ctx. US reviewed. no concerns today. 28 week labs ordered. LARC done today. Travel precautions done. 03/12/23 -?-?-?-?-?-?-?-?-?-?-?-?- 25w 3d 150 lb 107/68 -?-?-?-?-?-?-?-?-?-?-?-?- 145 25 -?-?-?-?-?-?-?-?-?-?-?-?- SM- no vb lof go od fm no regular ctx SM- no vb lof good fm no reg ular ctx labs drawn today 04/05/23 -?-?-?--?-?-?-?-?-?-?-?-?- 28w 6d 156 lb 2 oz 114/72 Trac e -?-?-?-?-?-?-?-?-?-?-?-?- Negative 140 28 -?-?-?-?-?-?-?-?-?-?-?-?- LC- no vb/ctx/lo f. +fm. white curdy discharge +yeast infection. diflucan rx sent. 04/20/23 -?-?-?-?-?-?-?-?-?-?-?-?- 31w 0d 158 lb 4 oz 91/62 Nega tive -?-?-?-?-?-?-?-?-?-?-?-?- Negative 160 31 -?-?-?-?-?-?-?-?-?-?-?-?- SM- no vb lof go od fm no regular ctx 05/04/23 -?-?-?-?-?-?-?-?-?-?-?-?- 33w 0d 157 lb 8 oz 98/66 Nega tive -?-?-?-?-?-?-?-?-?-?-?-?- Negative 145 33 -?-?-?-?-?-?-?-?-?-?-?-?- KW-no vb/lof/ctx . good fm 36 week US scheduled 05/17/23 -?-?-?--?-?-?-?-?-?-?-?-?- 34w 6d 162 lb 105/70 Negative -?-?-?-?-?-?-?-?-?-?-?-?- Negative 145 34 -?-?-?-?-?-?-?-?-?-?-?-?- JShorty- pt had covid last week and is now feeling better .She already had a growth scan scheduled for 36 weeks but started taking vitamins. 06/02/23 -?-?-?-?-?-?-?-?-?-?-?-?- 37w 1d 162 lb 4 oz 105/71 Nega tive -?-?-?-?-?-?-?-?-?-?-?-?- Negative 140 33 Cephalic 2 -?-?-?-?-?-?-?-?-?-?-?-?- 50 -2 JV- no lof , vaginal bleeding, or dec fm. growth scan from 05/25 34th%, [facility] recommends testing weeky. NST today JV- no lof, vaginal bleeding , or dec fm. growth scan from 05/25 34th%, [facility] recommends testing weeky. NST today reactive 06/08/23 -?-?-?-?-?-?-?-?-?-?-?-?- 38w 0d 162 lb 108/70 -?-?-?-?-?-?-?-?-?-?-?-?- 140 35 Cephalic 2 -?-?-?-?-?-?-?-?-?-?-?-?- SM- no vb lof go od fm no regular ctx plan NST today today delivery by 40 weeks NST FHR Rate Baby A Baseline: 130 Variability:: Moderate Accelerations:: 15 x 15 Decelerations:: Variable NST Reactive:: Yes FHR Category:: Category I Uterine Activity:: irregular ROS Constitutional Constitutional: Denies change in weight, fatigue, fever(s), headache(s), poor appetite or weakness Eyes Eyes: Denies blurry vision, change in vision, floaters, seeing flashes or spots in vision ENT HEENT: Denies dizziness, headache(s), loss taste/smell or sore throat Cardiovascular Cardiovascular: Denies chest pain, dizziness, dyspnea, irregular heart rhythm, lightheadedness, palpitations or rapid heart rate Respiratory/Chest Respiratory/Chest: Denies change in mental status, chest tightness, cough, dyspnea or breast pain Gastrointestinal Gastrointestinal: Denies anorexia, chewing difficulty, constipation, diarrhea or weight changes Genitourinary Genitourinary: Denies difficulty urinating, dysuria, flank pain, genital pain, urinary frequency or urinary urgency Musculoskeletal Musculoskeletal: Denies back pain, difficulty walking, extremity pain, joint pain, muscle cramps or muscle weakness Integumentary Integumentary: Denies lesions or unusual bruising Neurologic Neurologic: Denies abnormal movements, abnormal speech, dizziness, numbness, seizure-like activity, syncope or weakness Psychiatric Psychiatric: Denies behavioral changes, change in appetite, confusion, depression, homicidal ideation, suicidal ideation or suicidal thoughts Endocrine Endocrinology: Denies excessive sweating, polydipsia or polyuria Hematologic/Lymphatic Hematologic/Lymphatic: Denies anemia Allergic/Immunologic Allergic/Immunologic: Denies itchy eyes, lip swelling, throat swelling, tongue swelling or wheezing Vital Signs Vital Signs Vital Signs: 06/22/23 07:36 06/22/23 07:36 06/22/23 07:37 Temperature Temperature Source Pulse Rate 95 105 H Blood Pressure 100/68 BP Systolic 100 BP Diastolic 68 Pulse Ox 06/22/23 07:37 06/22/23 07:37 06/22/23 07:37 Temperature 98.6 F Temperature Source Temporal Pulse Rate Blood Pressure BP Systolic BP Diastolic Pulse Ox 98 Weight Weight: 160 lb 8 oz Body Mass Index (BMI) 25.9 Physical Exam Const alert, oriented x3 and no apparent distress General Appearance: cooperative Orientation / Consciousness: awake HEENT normocephalic Neck full ROM Lymph Lymphatic: no lymphadenopathy noted Chest inspection of chest normal Resp normal respiratory effort and normal air movement Effort and Inspection: able to speak in complete sentences and symmetric chest movement GI soft to palpation and non-tender Inspection: gravid Palpation: soft; Negative for tender external exam normal Manual OB Exam: presentation cephalic, dilated 4, effaced 80 and station - 1 Back/Spine normal to inspection Extremity normal to inspection and full ROM Skin no rashes or lesions noted Psych mental status grossly normal Appearance: grossly normal Speech: normal speech Labs Labs Labs: Blood Type B POSITIVE Antibody Screen NEGATIVE Hct 35.4 % (37-47) L Hgb 11.1 g/dL (12.0-15.0) L Pap Smear Negative Obstetrics Ultrasound Syphilis Total Ab Non-reactive Rubella IgG Antibody Equiv (Nonreactive) Hep Bs Antigen Non-Reactive (Nonreactive) Hepatitis C Antibody Non-Reactive (Nonreactive) Chlamydia DNA (PHYLICIA) Negative (Negative) N.gonorrhoeae DNA (PHYLICIA) Negative (Negative) HIV 1&2 Antibody Non-Reactive (Nonreactive) Glucose 1 Hr 50 gm 117 mg/dL (70-140) Assessment & Plan (1) Encounter for induction of labor: COMMENT: 40.0 AMA PLAN: Patient presents IOL, plan management for with pitocin/AROM. Pain management: plans epidural. GBS negative. Routine admission orders and labs Management of any complications: AMA, history of 3rd degree laceration I have reviewed the [facility], [facility] and made any clinically relevant updates. Dr Keller aware of and agrees with above assessment and plan of care. (2) Rubella non-immune status, antepartum: COMMENT: equivocal. MMR PP (3) AMA (advanced maternal age) multigravida 35+: COMMENT: genetic counseling provided. growth us at 36 weeks, deliver by 40. IOL 06/22 7am (4) Supervision of high risk , antepartum: COMMENT: [id number] KAE 06/22/23, girl, PC Naomi Farnaz (5) Ulcerative colitis with rectal bleeding: COMMENT: stable no meds. iron and b12 levels drawn nst weekly per [facility] (6) : QUALIFIERS: Weeks of gestation: 39 weeks Qualified Code(s): Z3A.39 - 39 weeks gestation of COMMENT: NIPT low risk, declined ntd screen and carrier. nl anatomy Charges/Coding Multi Select Codes Urinary/Genital Urinary/Genital CPT Codes: No Charge
[2023-06-22] MEDS: Lactated Ringers 1,000 ML 50 ML IV ×2 (08:30→15:15)
[2023-06-22 08:32] LABS: Absolute Lymphocyte Count 3.57 X10^3/uL (0.83-4.51); Absolute Neutrophil Count 7.4 X10^3/uL (2.0-7.7); Basophil# 0.05 X10^3/uL; Basophil% 0.4 % (0-1); Eosinophil# 0.09 X10^3/uL; Eosinophils% 0.8 % (0-5); Hemoglobin 10.9 g/dL (12.0-15.0); Lymphocyte # 3.57 X10^3/ul (0.83-4.51); Lymphocyte % 29.8 % (19-41); Mean Corp Hgb Conc 30.3 g/dL (32-36); Mean Corpuscular Volume 85.9 fL (81-99); Mean Platelet Vol. 9.8 fl (6.2-12.0); Monocyte# 0.75 X10^3/uL; Monocyte% 6.3 % (0-10); NRBC Flagged by Analyzer 0 % (0-5); Neutrophil # 7.43 X10^3/uL (2.7-7.7); Platelet Count 330 K/mm3 (150-450); RBC Distribution Width CV 13.8 % (11.6-14.6); RBC Distribution Width SD 42.6 fl (35.1-43.9); Red Blood Count 4.19 M/mm3 (4.2-5.4)
[2023-06-22] MEDS: Oxytocin 15 Units/NS 250ml 15 UNITS/250 ML IV.SOLN 2 UNITS IV (09:06)
[2023-06-22 10:03] LABS: Syphilis Antibodies Non-reactive
[2023-06-22] MEDS: LACTATED RINGERS 500 ML 999 ML IV ×2 (10:56→14:05)
[2023-06-22] MEDS: fentaNYL-bupivacaine (epidural) 100 ML BAG EPIDURAL (12:17)
--- NOTE | 2023-06-22 13:06 | PN_ITS ---
Progress Note comfortable with epidural current tracing: FHT: 130 Moderate variability reactive no decelerations category I tracing [place]: 4-5 minute Contractions Membranes: AROM clear 1300 SVE: /-1 reviewed tracing abnormalities since last note: None A/P: Continue with position changes Titrate pitocin per protocol Epidural per anesthesia Anticipate Dr Keller aware of plan and agrees with above assessment and plan of care Assessment & Plan Assessment/Plan (1) Encounter for induction of labor: (2) Rubella non-immune status, antepartum: (3) AMA (advanced maternal age) multigravida 35+: (4) Supervision of high risk , antepartum: (5) : QUALIFIERS: Weeks of gestation: 39 weeks Qualified Code(s): Z3A.39 - 39 weeks gestation of (6) Ulcerative colitis with rectal bleeding: Multi Select Codes Urinary/Genital Urinary/Genital CPT Codes: No Charge
--- NOTE | 2023-06-22 16:34 | OP.PCM_ITS ---
Assessment & Plan (1) Vaginal delivery: COMMENT: KW/SM IOL AMA 40.0 PLAN: routine orders placed (2) Rubella non-immune status, antepartum: COMMENT: equivocal. MMR PP (3) AMA (advanced maternal age) multigravida 35+: COMMENT: genetic counseling provided. growth us at 36 weeks, deliver by 40. IOL 06/22 7am (4) Supervision of high risk , antepartum: COMMENT: [id number] KAE 06/22/23, girl, PC Naomi [place] (5) : QUALIFIERS: Weeks of gestation: 39 weeks Qualified Code(s): Z3A.39 - 39 weeks gestation of COMMENT: NIPT low risk, declined ntd screen and carrier. nl anatomy (6) Ulcerative colitis with rectal bleeding: COMMENT: stable no meds. iron and b12 levels drawn nst weekly per [facility] Maternal Data Information KAE Calculator Estimated Delivery Date Method Current WG Current Estimate 06/22/23 LMP (Certain) 40w 0d Final KAE: 06/22/23 Final KAE Source: US >20 weeks Gestational age: 40.0 Vaginal Delivery Maternal Presentation Maternal Presentation: Medically Indicated Induction Maternal Presentation: Progressed quickly to 10cm dilated and made steady progress with effective maternal pushing. Bladder drained for 75 cc of clear urine. Forehead presentation noted with prolonged deceleration. Dr Keller called from office to assist with delivery. Small right mediolateral first degree episiotomy cut. Dr Keller in room and assisted with of head. Delivered the head in Direct OP presentation. The head was delivered atraumatically and no nuchal cord was identified. The anterior and posterior shoulders delivered without com plication followed by the rest of the and the infant was placed on the maternal abdomen, short cord noted. Delayed cord clamping was employed for approximately 3 minutes. Cord was clamped and cut and gentle traction was applied to the cord and the placenta delivered spontaneously. Immediately following, it was noted to be intact with a 3 vessel cord. The perineum and vagina were inspected and noted to have the first degree episiotomy which was repaired with 3-0 Vicryl in the usual fashion. EBL was 150cc. Patient and tolerated delivery well. Apgars 8/9. Dr Keller notified of vaginal delivery and orders reviewed. Physician agrees with above assessment and current plan of care. Type of Induction: Pitocin Medical Reason for Induction: Maternal Medical Condition: list: (advanced maternal age) Operative Information Date of Procedure: 06/22/23 Pre-Operative Diagnosis: See AP comments Post-Operative Diagnosis: Same Surgery / Procedure Performed: Spontaneous Vaginal Delivery financial services professional #1: Kaila Browne Type of Anesthesia: Epidural Estimated Blood Loss: 150 Time of Delivery: 16:06 Findings Amniotic Membrane Rupture Type: Artificial Time of Membrane Rupture: 1300 Amniotic Fluid Description: Clear Placental Delivery Description: Spontaneous Placenta Disposition: [facility] Cord Vessel Description: 3 Vessels Cord Entanglement: None A Gender: Female (1 minute): 8 (5 minute): 9 Delayed Cord Clamping: Yes Post Vaginal Delivery Medications Given After Delivery: IV Pitocin Episiotomy Description: Right Mediolateral and 1st degree Laceration: None Complication Complications: None Multi Select Codes Urinary/Genital Urinary/Genital CPT Codes: 95944 Vaginal Delivery [facility]
[2023-06-22] MEDS: Oxytocin 15 Units/NS 250ml 15 UNITS/250 ML IV.SOLN 83 UNITS IV (16:59)
[2023-06-22] MEDS: Ondansetron 4 MG/2 ML Vial IV (18:26)
[2023-06-23] MEDS: Acetaminophen 500 MG Tablet 1000 MG PO (00:22)
[2023-06-23] MEDS: Ibuprofen 600 MG Tablet PO (00:22)
[2023-06-23 00:35] VITALS: BP 106/60; PULSE 98; RESP 16; TEMP 36.6; O2SAT 98
[2023-06-23 04:25] VITALS: BP 96/55; PULSE 61; RESP 16; TEMP 36.6; O2SAT 98
[2023-06-23 07:51] VITALS: BP 95/56; PULSE 57; RESP 16; TEMP 36.9; O2SAT 98
--- NOTE | 2023-06-23 08:04 | PCM.PN.OB ---
Subjective Subjective Patient doing well without complaints. Tolerating PO. Ambulating and voiding without difficulty. Feeding well. Denies chest pain, shortness of breath, calf pain/swelling, fevers, chills, lightheadedness. Objective Data Objective Data Vital Signs: Vital Signs Temp Pulse Resp BP Pulse Ox O2 Del Method 98.4 F 57 L 16 95/56 L 98 Room Air 06/23/23 07:51 06/23/23 07:51 06/23/23 07:51 06/23/23 07:51 06/23/23 07:51 06/23/23 07:51 Oxygen Delivery Method Room Air Weight: 160 lb 8 oz Body Mass Index (BMI) 25.9 Intake & Output: Intake and Output for Last 24 Hours 06/21/23 06/22/23 06/23/23 23:59 23:59 23:59 Intake Total 2092.50 / 2092.50 Output Total 650 / 650 1150 / 1150 Balance 1442.50 / 1442.50 -1150 / -1150 Lab / Micro Data 06/22/23 08:10 Labs: Laboratory Results - last 24 hr 06/22/23 08:10: WBC 12.0 H, RBC 4.19 L, Hgb 10.9 L, Hct 36.0 L, MCV 85.9, MCH 26.0 L, MCHC 30.3 L, RDW Std Deviation 42.6, RDW Coeff of [place] 13.8, Plt Count 330, MPV 9.8, Immature Gran % (Auto) 0.700, Neut % (Auto) 62.0, Lymph % (Auto) 29.8, [place] % (Auto) 6.3, Eos % (Auto) 0.8, Baso % (Auto) 0.4, Absolute Neuts (auto) 7.4, Absolute Lymphs (auto) 3.57, Nucleated RBC % 0, Syphilis Total Ab Non-reactive, Blood Type B POSITIVE, Antibody Screen NEGATIVE Physical Exam Const alert and oriented x3 HEENT normocephalic Eyes PERRL Neck full ROM Resp normal respiratory effort GI soft to palpation GI Narrative: FF below U Assessment & Plan (1) Vaginal delivery: COMMENT: KW/SM IOL AMA 40.0 Edith (2) Rubella non-immune status, antepartum: COMMENT: equivocal. MMR PP PLAN: Plan s/p PPD # 1 1. routine post delivery care 2. breast feeding- support given 3. rh positive 4. rubella immune
[2023-06-23 12:51] VITALS: BP 92/57; PULSE 91; RESP 16; TEMP 37.7; O2SAT 98
[2023-06-23 17:22] VITALS: BP 99/58; PULSE 90; RESP 16; TEMP 36.8; O2SAT 96
== END 2023-06-23 19:35 | disposition home or self-care (01) | DRG 806 ==
PROVIDERS: Advanced Practice Midwife; Admitting Provider Obstetrics & Gynecology; PCP Family Medicine; Referring Provider Obstetrics & Gynecology; Visit Provider Obstetrics & Gynecology
DX: O76 Abnormality in fetal heart rate and rhythm complicating labor and delivery (principal); Z37.0 Single live birth; K51.911 Ulcerative colitis, unspecified with rectal bleeding; O48.0 Post-term pregnancy; O99.62 Diseases of the digestive system complicating childbirth; Z86.16 Personal history of COVID-19; Z79.82 Long term (current) use of aspirin; Z80.0 Family history of malignant neoplasm of digestive organs; Z3A.40 40 weeks gestation of pregnancy; Z28.39 Other underimmunization status
CPT/HCPCS: 59025; 59050; 85025; 86780; 86850; 86900; 86901; 99221; J7120; G0378; J2405

== ENCOUNTER → 2025-04-02 | Outpatient (CLI) | payer OTHER, SELFPAY ==
[2025-04-02 18:32] LABS: Hematocrit 38.4 % (37-47); Hemoglobin 12.3 g/dL (12.0-15.0); Mean Corp Hgb Conc 32.0 g/dL (32-36); Mean Corpuscular Volume 90.6 fL (81-99); Mean Platelet Vol. 10.6 fl (6.2-12.0); Platelet Count 210 K/mm3 (150-450); RBC Distribution Width CV 13.8 % (11.6-14.6); RBC Distribution Width SD 46.2 fl (35.1-43.9); Red Blood Count 4.24 M/mm3 (4.2-5.4); White Blood Count 5.3 K/mm3 (4.4-11.0)
[2025-04-02 19:11] LABS: CRP < 3.00 mg/L (0.0-3.0)
== END | disposition home or self-care (01) ==
LOC: MTLAB 14:00
PROVIDERS: PCP Family Medicine; Referring Provider Internal Medicine Gastroenterology; Visit Provider Internal Medicine Gastroenterology
DX: K51.90 Ulcerative colitis, unspecified, without complications (principal)
CPT/HCPCS: 36415; 85027; 85652; 86140